=== PATIENT | female | born 1985 | race Native Hawaiian/Other Pacific Islander ===

== ENCOUNTER 2023-04-27 18:26 | Emergency (ER) | payer OTHER ==
[~2023-04-27] VITALS: Ht 162.6 cm; Wt 69.9 kg
[2023-04-27 18:31] VITALS: BP_SYST 133; PULSE 83; RESP 18; TEMP 98; O2SAT 99
[2023-04-27] MEDS ORDERED: IBUP-1969 PO (19:38)
[2023-04-27] MEDS ORDERED: HYDR-3917 PO (19:38)
[2023-04-27] MEDS: IBUPROFEN 800 MG TABLET PO ONE (19:44)
[2023-04-27 19:48] VITALS: BP_SYST 129; PULSE 81; RESP 17; TEMP 97.8; O2SAT 100
== END 2023-04-27 19:48 | disposition home or self-care (01) ==
LOC: SED 18:26
DX: S40.011A Contusion of right shoulder, initial encounter (principal); S70.01XA Contusion of right hip, initial encounter; Z79.899 Other long term (current) drug therapy; V03.10XA Pedestrian on foot injured in collision with car, pick-up truck or van in traffic accident, initial encounter; Y93.89 Activity, other specified; Y92.89 Other specified places as the place of occurrence of the external cause; Y99.8 Other external cause status
CPT/HCPCS: 73030; 73502; 99284